=== PATIENT | female | born 1965 | race Caucasian/White ===

== ENCOUNTER 2017-05-21 15:35 | Emergency (ER) | payer BC ==
[~2017-05-21] VITALS: Ht 162.6 cm; Wt 55.9 kg
[2017-05-21 15:43] VITALS: BP 125/80
--- NOTE | 2017-05-21 15:56 | NUR ---
c/o generalized body pain , cough, throat pain, headache, rhinorrhea x this am pt adds she fell asleep feeling fine but awoke in pain admits 6 episodes of watery stools 2 days ago only denies n/v/d---took 800mg motrin today with little relief. SKIN IS PINK/WARM/DRY; AAOX4 WITH EVEN AND STEADY GAIT; LUNGS CLEAR BL; HR EVEN AND REGULAR; PT DENIES ANY FEVER, CP, SOB, OR COUGH AT THIS TIME; PATIENT STATES PAIN OF 9/10 AT THIS TIME; VSS; PATIENT POSITIONED FOR COMFORT; HOB ELEVATED; BEDRAILS UP X2; BED DOWN. ER MD MADE AWARE OF PT STATUS.
[2017-05-21] MEDS ORDERED: KETOROLAC 30 MG/ML VIAL IM ONE (16:10)
--- NOTE | 2017-05-21 16:23 | NUR ---
INFLUENZA A AND B AND RAPID STREP SPECIMEN COLLECTED;
[2017-05-21 17:05] VITALS: BP 120/80
--- NOTE | 2017-05-21 17:07 | NUR ---
Patient discharged with v/s stable. Written and verbal after care instructions given and explained. Patient alert, oriented and verbalized understanding of instructions. Ambulatory with steady gait. All questions addressed prior to discharge. ID band removed. Patient advised to follow up with PMD. Rx of IBUPROFEN AND TYLENOL given. Patient educated on indication of medication including possible reaction and side effects. Opportunity to ask questions provided and answered.
== END 2017-05-21 17:07 | disposition home or self-care (01) ==
LOC: MED 15:35
DX: J02.9 Acute pharyngitis, unspecified (principal); R52 Pain, unspecified; Z71.6 Tobacco abuse counseling
CPT/HCPCS: 36415; 87081; 87804; 96372; 99284; J1885

== ENCOUNTER 2021-11-13 12:55 | Emergency (ER) | payer BC ==
[~2021-11-13] VITALS: Ht 154.9 cm; Wt 64.4 kg
[2021-11-13 13:05] VITALS: BP 122/85
--- NOTE | 2021-11-13 13:15 | NUR ---
56 Y/O FEMALE BIB SELF FOR INTERMITTENT CHEST PAIN RADIATING TO LEFT SHOULDER X YESTERDAY. PT APPEARS ANXIOUS AND UNABLE TO LIE FLAT DUE TO THE PRESSURE LIKE PAIN. PT DENIES FEVER OR CHILLS. PT DENIES SOB. PT DENIES N,V,D. LUNGS CTA. PT PLACED ON MONITOR. BED LOCKED IN LOWEST POSITION, BED RAILX1. PMHX: ANXIETY ALLERGIES: DENIES
[2021-11-13 13:35] LABS: BASOPHILS # (AUTO) 0.2 K/uL (0.00-0.22); BASOPHILS % (AUTO) 2.9 % (0.0-2.0); EOSINOPHILS # (AUTO) 0.2 K/uL (0-0.4); EOSINOPHILS % (AUTO) 2.7 % (0.0-4.0); HEMATOCRIT 40.6 % (36-48); HEMOGLOBIN 13.7 g/dL (12.0-16.0); LYMPHOCYTES # (AUTO) 1.6 K/uL (2.5-16.5); LYMPHOCYTES % (AUTO) 25.6 % (20.5-51.1); MEAN CORPUSCULAR HEMOGLOBIN 31 pg (27-31); MEAN CORPUSCULAR HGB CONC 34 g/dL (33-37); MONOCYTES # (AUTO) 0.3 K/uL (0.8-1.0); NEUTROPHILS # (AUTO) 3.9 K/uL (1.8-7.7); NEUTROPHILS % (AUTO) 63.8 % (42.2-75.2); PLATELET COUNT (AUTO) 320 K/uL (140-450); RED BLOOD CELL COUNT(AUTO) 4.41 MIL/uL (4.20-5.40); RED CELL DISTRIBUTION WIDTH 12.9 % (11.6-13.7); WHITE BLOOD COUNT (AUTO) 6.1 K/uL (4.8-10.8)
[2021-11-13 13:54] LABS: ALBUMIN 3.8 g/dL (3.4-5.0); ANION GAP 10.7 (8-16); ASPARTATE AMINOTRANSFERASE 13 U/L (15-37); CARBON DIOXIDE 25.1 mmol/L (21-32); CHLORIDE 103 mmol/L (98-107); CREATININE 0.6 mg/dL (0.6-1.3); GFR ARICAN-AMERICAN 134 mL/min (>90); GLUCOSE 114 mg/dL (74-106); POTASSIUM 3.8 mmol/L (3.5-5.1); SODIUM SERUM 135 mmol/L (136-145); TOTAL BILIRUBIN 0.4 mg/dL (0.0-1.0); UREA NITROGEN, BLOOD 6 mg/dL (7-18)
[2021-11-13] MEDS ORDERED: KETOROLAC 30 MG/ML VIAL IM ONE (14:15)
--- NOTE | 2021-11-13 15:01 | NUR ---
PT RESTING IN BED, EVEN AND UNLABORED BREATHING, PT STATES HER ANXIETY HAS IMPROVED AND SHE FEELS BETTER.
--- NOTE | 2021-11-13 15:05 | NUR ---
Followed up with lab regarding D-Dimer which will be resulted in 15 minutes from now.
[2021-11-13 16:34] VITALS: BP 121/62
--- NOTE | 2021-11-13 16:35 | NUR ---
Patient discharged with v/s stable. Written and verbal after care instructions given and explained. Patient alert, oriented and verbalized understanding of instructions. Ambulatory with steady gait. All questions addressed prior to discharge. ID band removed. Patient advised to follow up with PMD.Opportunity to ask questions provided and answered.
== END 2021-11-13 16:29 | disposition home or self-care (01) ==
LOC: MED 12:55
DX: R89.1 Abnormal level of hormones in specimens from other organs, systems and tissues (principal); Z79.899 Other long term (current) drug therapy
CPT/HCPCS: 36415; 71045; 80053; 84484; 84702; 85025; 85379; 93005; 96372; 99285; J1885

== ENCOUNTER 2022-03-05 10:25 | Emergency (ER) | payer BC ==
[~2022-03-05] VITALS: Ht 165.1 cm; Wt 65.5 kg
[2022-03-05 10:28] VITALS: BP 118/69
--- NOTE | 2022-03-05 10:34 | NUR ---
PT AMB TO BED 3.
[2022-03-05] MEDS ORDERED: KETOROLAC 30 MG/ML VIAL IVP ONE (11:15)
[2022-03-05 12:03] LABS: BASOPHILS % (AUTO) 0.5 % (0.0-2.0); EOSINOPHILS # (AUTO) 0.2 K/uL (0-0.4); EOSINOPHILS % (AUTO) 3.1 % (0.0-4.0); HEMATOCRIT 40.2 % (36-48); HEMOGLOBIN 13.8 g/dL (12.0-16.0); LYMPHOCYTES # (AUTO) 1.4 K/uL (2.5-16.5); MEAN CORPUSCULAR HEMOGLOBIN 32 pg (27-31); MEAN CORPUSCULAR HGB CONC 34 g/dL (33-37); MEAN CORPUSCULAR VOLUME 92.3 fL (80-94); MONOCYTES # (AUTO) 0.4 K/uL (0.8-1.0); MONOCYTES % (AUTO) 6.2 % (1.7-9.3); NEUTROPHILS # (AUTO) 5.1 K/uL (1.8-7.7); NEUTROPHILS % (AUTO) 71.2 % (42.2-75.2); PLATELET COUNT (AUTO) 308 K/uL (140-450); RED BLOOD CELL COUNT(AUTO) 4.35 MIL/uL (4.20-5.40); RED CELL DISTRIBUTION WIDTH 12.9 % (11.6-13.7); WHITE BLOOD COUNT (AUTO) 7.2 K/uL (4.8-10.8)
[2022-03-05 12:24] LABS: ALBUMIN 3.8 g/dL (3.4-5.0); CARBON DIOXIDE 25.1 mmol/L (21-32); CREATININE 0.6 mg/dL (0.6-1.3); POTASSIUM 4.1 mmol/L (3.5-5.1); TOTAL BILIRUBIN 0.2 mg/dL (0.0-1.0)
--- NOTE | 2022-03-05 12:45 | NUR ---
PT STATES RELIEF FROM PAIN
--- NOTE | 2022-03-05 13:46 | NUR ---
Patient discharged with v/s stable. Written and verbal after care instructions given and explained. Patient verbalized understanding. Ambulatory with steady gait. All questions addressed prior to discharge. Advised to follow up with PMD.
[2022-03-05 13:57] VITALS: BP 122/79
[2022-03-05 14:08] LABS: APPEARANCE,URINE CLEAR (CLEAR); BILIRUBIN,URINE NEGATIVE (NEGATIVE); BLOOD, URINE NEGATIVE (NEGATIVE); COLOR,URINE YELLOW (YELLOW); LEUKOCYTE ESTERASE ,URINE TRACE (NEGATIVE); NITRITE, URINE NEGATIVE (NEGATIVE); UGLUCOSE NEGATIVE (NEGATIVE)
[2022-03-05 14:46] LABS: RBC,URINE 0-5 /HPF (0-5); TRICHOMONAS,URINE None Seen /HPF (None Seen); WBC,URINE 0-5 /HPF (0-5); YEAST,URINE None Seen /HPF (None Seen)
== END 2022-03-05 13:46 | disposition home or self-care (01) ==
LOC: MED 10:25
DX: R10.11 Right upper quadrant pain (principal); Z20.822 Contact with and (suspected) exposure to COVID-19; R07.9 Chest pain, unspecified; M54.6 Pain in thoracic spine; R09.1 Pleurisy; F17.200 Nicotine dependence, unspecified, uncomplicated; Z72.89 Other problems related to lifestyle
CPT/HCPCS: 36415; 71045; 76705; 80053; 81001; 81025; 83605; 83690; 85025; 87040; 87426; 96372; 99285; J1885; Q0092